=== PATIENT | male | born 1970 | race Caucasian/White ===

== ENCOUNTER 2022-01-25 11:29 | Emergency (ER) | payer BC, SELFPAY ==
[2022-01-25] VITALS (10 sets, daily range): BP systolic 132–141; BP diastolic 85–104; PULSE 77–99; RESP 13–29; TEMP 36.4; O2SAT 94–100
--- NOTE | ~2022-01-25 | XR_ITS ---
EXAMINATION: XR chest 2V DATE: 01/25/2022 12:28 INDICATION: Chest pain and shortness of breath TECHNIQUE: PA and lateral views of the chest are obtained. COMPARISON: None available FINDINGS: The lungs are free of acute opacities. No pleural effusion or pneumothorax. The cardiomedia stinal silhouette is normal. The visualized bones and soft tissues are unremarkable. Surgical clips i n the right upper quadrant are likely from prior cholecystectomy. IMPRESSION: 1. No acute cardiopulmonary abnormality. Reviewed, dictated and finalized at location B.
--- NOTE | 2022-01-25 11:35 | ECG_ITS ---
Measurements Intervals [place] Rate: 96 P: 53 AR: 150 QRS: -22 QRSD: 81 T: 32 QT: 313 QTc: 396 Interpretive Statements SINUS RHYTHM Electronically Signed On 01-25-2022 12:41:15 CDT by Elijah Ulloa M.D.
[2022-01-25 11:51] LABS: Basophils Absolute Auto 0.1 K/mm3 (0.0-0.1); Basophils Percent Auto 0.6 % (0.2-1.2); Eosinophils Absolute Auto 0.5 K/mm3 (0-0.3); Eosinophils Percent Auto 4.1 % (0-4.4); Hematocrit 50.7 % (42.0-52.0); Hemoglobin 17.5 g/dL (14.0-18.0); Immature Granulocyte Absolute 0.04 K/mm3 (0.00-0.031); Immature Granulocyte Percent A 0.3 % (0-0.5); Lymphocytes Absolute Auto 2.05 K/mm3 (0.9-3.2); Lymphocytes Percent Auto 17.5 % (18.3-44.2); Mean Corpuscular HGB Conc 34.5 g/dl (32-36); Mean Corpuscular Hemoglobin 31.1 pg (26-34); Mean Corpuscular Volume 90.1 fl (80-100); Mean Platelet Volume 11.5 fl (7.4-10.4); Monocytes Absolute Auto 0.6 K/mm3 (0.1-0.6); Monocytes Percent Auto 4.8 % (2.6-8.5); Neutrophils Absolute Auto 8.5 K/mm3 (1.3-6.7); Neutrophils Percent Auto 72.7 % (45.5-73.1); Platelet Count Result 226 k/mm3 (150-375); Red Blood Count 5.63 M/mm3 (4.6-6.20); Red Cell Distribution Width 13.9 % (11.5-14.5); White Blood Count 11.7 K/mm3 (4.5-10.0)
--- NOTE | 2022-01-25 11:55 | ED.SOB ---
HPI - SOB/Dyspnea General Chief Complaint: Shortness of Breath/Dyspnea Stated Complaint: sob, fatigue Time Seen by Provider: 01/25/22 11:38 History of Present Illness HPI Narrative: 52-year-old male presents to the emergency room today for complaints of shortness of breath and chest tightness for the past couple of weeks. He feels like it has been worse over the past 3 days. He says that the shortness of breath feeling has been constant and the chest tightness has been an intermittent sensation. He says that he wakes up in the middle of the night gasping for air. He says that he will get this during the day as well. He denies having any cough or wheezing. No fever or chills. Denies any recent illness. He is a daily smoker. Patient denies any chronic health problems. Related Data Allergies Allergy/AdvReac Type Severity Reaction Status Date / Time fentanyl Allergy Itching Verified 01/25/22 11:39 Review of Systems Review of Systems: CONSTITUTIONAL: Denies fever, chills, or sweats. EYES: Denies visual changes, redness, or discharge. ENT: Denies rhinorrhea, congestion, sore throat, or otalgia. CARDIOVASCULAR: Denies chest pain, palpitations, or edema. Reports intermittent chest tightness RESPIRATORY: as per HPI GASTROINTESTINAL: Denies abdominal pain, nausea, vomiting, or diarrhea. GENITOURINARY: Denies dysuria or hematuria. SKIN: Denies rash or itching. MUSCULOSKELETAL: Denies back pain, joint pain, or myalgia. NEUROLOGIC: Denies headache, numbness, dizziness, or weakness. PSYCHIATRIC: Denies anxiety or depression. Exam Narrative: GENERAL: Well-appearing, well-nourished, and in no acute distress. HEAD: Normocephalic, atraumatic. EYES: PERRLA and EOMI. NECK: Supple. No adenopathy or masses. No carotid bruits or JVD CHEST: Clear to auscultation. No respiratory distress. No wheezes rales or rhonchi HEART: Regular rate and rhythm. No murmur heard. Normal peripheral pulses. ABDOMEN: Soft, nontender, nondistended, normal active bowel sounds. EXTREMITIES: Normal range of motion. No edema. SKIN: Warm, dry, no rash. NEURO: No focal deficits. Alert and oriented x3. PSYCH: Normal mood and affect. Course Reevaluation(s) Reevaluation #1: Pt continues to be pain free with no dyspnea or hypoxia Date: 01/25/22 Time: 13:00 Vital Signs Vital signs: Vital Signs Temperature 36.4 C 01/25/22 11:35 Pulse Rate 95 01/25/22 11:35 Respiratory Rate 16 01/25/22 11:35 Blood Pressure 137/104 H 01/25/22 11:35 Pulse Oximetry 98 01/25/22 11:35 Oxygen Delivery Room Air 01/25/22 11:35 Temperature 36.4 C 01/25/22 11:35 Pulse Rate 86 01/25/22 12:29 Respiratory Rate 27 H 01/25/22 12:29 Blood Pressure 137/91 H 01/25/22 12:29 Pulse Oximetry 95 01/25/22 12:45 Oxygen Delivery Room Air 01/25/22 11:49 MDM - SOB/Dyspnea Differential Diagnosis Differential diagnosis: Likely acute exacerbation of chronic obstructive airways disease, congestive heart failure, community acquired pneumonia, asthma with exacerbation and pulmonary embolism Lab Data Attestation: I reviewed the patient's lab results. Result diagrams: 01/25/22 11:46 01/25/22 11:59 Labs: Lab Results 01/25/22 01/25/22 01/25/22 Range/Units 11:45 11:46 11:46 WBC 11.7 H (4.5-10.0) K/mm3 RBC 5.63 (4.6-6.20) M/mm3 Hgb 17.5 (14.0-18.0) g/dL Hct 50.7 (42.0-52.0) % MCV 90.1 (80-100) fl MCH 31.1 (26-34) pg MCHC 34.5 (32-36) g/dl RDW 13.9 (11.5-14.5) % Plt Count 226 (150-375) k/mm3 MPV 11.5 H (7.4-10.4) fl Immature Gran % (Auto) 0.3 (0-0.5) % Neut % (Auto) 72.7 (45.5-73.1) % Lymph % (Auto) 17.5 L (18.3-44.2) % [place] % (Auto) 4.8 (2.6-8.5) % Eos % (Auto) 4.1 (0-4.4) % Baso % (Auto) 0.6 (0.2-1.2) % Lymph # (Auto) 2.05 (0.9-3.2) K/mm3 [place] # (Auto) 0.6 (0.1-0.6) K/mm3 Eos # (Auto) 0.5 H (0-0.3) K/mm3 Baso # (Auto) 0.1 (0.0-0.1)
[2022-01-25 12:01] LABS: Prothrombin Time 12.6 Seconds (11.1-14.7)
[2022-01-25 12:02] LABS: Partial Thromboplastin Time 30.6 SECONDS (22.3-36.8)
[2022-01-25 12:16] LABS: Alanine Aminotransferase 27 U/L (6-50); Albumin Level 4.4 g/dL (3.5-5.1); Alkaline Phosphatase 47 U/L (38-126); Anion Gap 8 mmol/L (8-16); Aspartate Amino Transferase 26 U/L (17-59); Bilirubin,Total 1.3 mg/dL (0.2-1.3); Blood Urea Nitrogen 12 mg/dL (9-20); Calcium 9.4 mg/dL (8.4-10.2); Carbon Dioxide 26 mmol/L (22-30); Chloride 101 mmol/L (98-107); Estimated CRCL calculation 89 ml/min; Estimated Glomerular Filt Rate > 60; Glucose 103 mg/dL (65-110); Lipase 47 U/L (23-300); Potassium 4.2 mmol/L (3.4-5.0); Sodium 135 mmol/L (137-145)
[2022-01-25 12:27] LABS: Troponin I < 0.012 ng/mL (0.000-0.034)
[2022-01-25 13:06] LABS: D Dimer 0.32 ug/mL (<0.48)
== END 2022-01-25 14:07 | disposition home or self-care (01) ==
PROVIDERS: Preventive Medicine Aerospace Medicine; Emergency Provider Nurse Practitioner Family; PCP Internal Medicine
DX: R06.02 Shortness of breath (principal); F17.200 Nicotine dependence, unspecified, uncomplicated
CPT/HCPCS: 36415; 71046; 80053; 83690; 84484; 85025; 85380; 85610; 85730; 93005; 99284

== ENCOUNTER 2022-11-16 09:22 | Outpatient (CLI) | payer BC, SELFPAY ==
--- NOTE | ~2022-11-16 | US_ITS ---
EXAMINATION: US right upper quadrant DATE: 11/17/2022 09:58 INDICATION: Elevated liver enzymes TECHNIQUE: Multiple grayscale and Doppler ultrasound images of the abdomen were obtained. COMPARISON: 12/23/2006 FINDINGS: Bowel gas obscures visualization of the pancreas. The liver is normal with normal echogenic ity and echotexture. No surface nodularity. Normal hepatopetal flow in the main portal vein. The gall bladder is surgically absent. The normal common bile duct measures 4 mm. IMPRESSION: 1. Unremarkable postcholecystectomy ultrasound. Reviewed, dictated and finalized at location A.
== END 2022-11-16 09:23 ==
LOC: MICIMG 11-17 09:25
DX: R74.8 Abnormal levels of other serum enzymes (principal)
CPT/HCPCS: 76705